=== PATIENT | male | born 1940 | race Caucasian/White ===

== ENCOUNTER 2021-03-09 00:29 | Emergency (ER) | payer MEDICARE, SELFPAY ==
[2021-03-09 00:30] VITALS: BP 200/104; PULSE 76; RESP 17; TEMP 36.4; O2SAT 97; BMI 26.6
--- NOTE | 2021-03-09 00:41 | ED_ITS ---
HPI - Fall General: Chief Complaint: Fall Stated Complaint: FALL Time Seen by Provider: 03/09/21 00:31 History of Present Illness: HPI Narrative: Patient is an 81-year-old male comes to the ED via EMS after having a fall. His main complaint is right knee pain. Patient says he was walking out of his camper and he was going down the steps. He missed the last step causing him to fall in his right knee folded up underneath him. Pain is located in the right knee and up into his thigh. His pain is minimal while at rest and with his leg straight. He says if he tries to move his leg at all the pain is severe. He denies hitting his knee on the ground, hitting head or having any loss of consciousness. he had a lot of pain in his right knee at the time and had to forcefully move his leg into the extended position using his other leg. Denies any other pain or injury to limbs. Patient is visiting this area and is at [employer]. He lives up in [place] and sees an administrative office specialist up there for his knees. He states that he gets injections in both right and left knees to help with his chronic knee pain. Associated symptoms-after fall: Denies abdominal pain, chest pain, headache(s), hematuria or neck pain Review of Systems Const: Denies: fever(s), chills or fatigue Eyes: Denies: change in vision or eye discomfort ENMT: Denies: throat pain, odynophagia, nasal discharge or nasal congestion Card: Denies: chest pain, palpitations, edema, swelling of feet/ankles, dyspnea on exertion or orthopnea Resp: Denies: dyspnea, productive cough or non-productive cough GI: Denies: abdominal pain, nausea, vomiting, diarrhea, constipation or hematochezia : Denies: flank pain, difficulty urinating, dysuria or hematuria Musc: Reports: joint pain (Right knee pain) and joint swelling (Right knee ); Denies: neck pain, back pain or extremity swelling Skin/Breast: Denies: rash or new lesions Neuro: Denies: headache(s), numbness in extremities or weakness in extremities Physical Exam Const: COMMON NORMALS: no acute distress, patient oriented x3, healthy appearing and alert GENERAL APPEARANCE: cooperative and comfortable HENMT: COMMON NORMALS: normocephalic HEAD & SCALP: normocephalic MOUTH: Normal oral and palatal mucosa present THROAT: posterior oropharynx normal and uvula midline Eye: COMMON NORMALS: Equal, round and reactive pupils present PUPIL: Yes Equal, round and reactive pupils present Neck/C-Spine: COMMON NORMALS: supple GENERAL: Yes normal visual inspection Resp: COMMON NORMALS: normal respiratory effort, No retractions, No use of accessory muscles and clear to auscultation bilaterally AUSCULTATION: clear to auscultation bilaterally Cardio: COMMON NORMALS: regular rate, regular rhythm, S1 normal heart sound present, S2 normal heart sound present, No gallops present (Cardio), No clicks present (Cardio), No murmurs present (Cardio) and Peripheral pulses 2+ throughout RATE: regular rate RHYTHM: regular rhythm HEART SOUNDS: S1 normal heart sound present and S2 normal heart sound present PERIPHERAL PULSES: Peripheral pulses 2+ throughout GI: COMMON NORMALS: Normal to inspection, nondistended, normoactive bowel sounds present, Soft to palpation, non-tender and no masses PALPATION: Yes Soft to palpation : COMMON NORMALS: Yes no CVA tenderness BLADDER/KIDNEY EXAM: Yes no CVA tenderness Back/Pelvis: COMMON NORMALS: no CVA tenderness Extremity: GENERAL: Yes normal exam except as noted RIGHT LOWER EXTREMITY: Yes knee joint Right knee: Yes inspection (No visible deformity noted. Swelling noted to knee.), Yes palpation (Tender over patellar and medial aspect of knee), Yes ROM (Limited due to pain-no pain at extension) and Yes neurovascular exam (Intact) Neuro: COMMON NORMALS: patient oriented x3 and moves all extremities SENSORIUM/ORIENTATION: Yes alert Skin: GENERAL SKIN EXAM: dry skin Course Vital Signs: Vital signs: Vital Signs Temperature 97.6 F 03/09/21 00:30 Pulse Rate 76 03/09/21 00:30 Respiratory Rate 17 03/09/21 00:30 Blood Pressure 171/91 03/09/21 00:44 Pulse Oximetry 97 03/09/21 00:30 MDM - Fall MDM Narrative: Medical decision making narrative: Patient is a 81-year-old male comes to the ED with right knee injury. Patient says he was stepping out of his camper any missed the last step and fell bending his right knee back underneath him. He states that bending his knee causes pain but when knee is extended out he has minimal to no pain. Upon exam patient has visible swelling to the knee with tenderness over the patella and the medial aspect of the knee. Pain with flexion of knee. Neurovascular intact. X-ray of right tib-fib, knee and femur showed no acute fractures or dislocations but did note some right knee effusion. Patient is visiting the [place] area and lives in [place]. He has an orthopedic doctor he sees there and I told him to contact that orthopedic doctor tomorrow to get set up with an appointment for his need to be evaluated by them within the next week. Patient was diagnosed with knee effusion and discharged home with some crutches and in a knee immobilizer. I also sent him home with a written prescription for hydrocodone 5/325 mg quantity 8 tablets for pain. Return to ED precautions given. Patient understood agree with plan. Imaging Data^: Xray Ortho: Attestation: I personally reviewed and interpreted this imaging study as follows: Radiologist's impression: [address] [place] [address] XRay Report Signed Patient: Javed Ferraro Unit #: [id number] : 1940 Age/Sex: 81 / M ADM Date: 03/09/21 Loc: ER Room/Bed: Attending Dr: Ordering Provider/Ordering MD: Kyle Goetz Date of Service: 03/09/21 Procedure(s): XR tibia fibula RT 2V 61771 Accession Number(s): [id number] Report Number: [id number] PROCEDURE INFORMATION: Exam: XR Right Tibia and Fibula Exam date and time: 03/09/2021 1:00 AM Age: 81 years old Clinical indication: Injury or trauma; Blunt trauma; Knee; Right; Patient HX: Fall. No visible trauma to leg. ; Additional info: Fall with knee pain TECHNIQUE: Imaging protocol: XR Right tibia and fibula. Views: 2 views. COMPARISON: No relevant prior studies available. FINDINGS: Bones/joints: No acute fracture, subluxation, periosteal reaction or osseous erosion. Soft tissues: Normal. XR/XR tibia fibula RT 2V 87915 IMPRESSION: No acute fracture, subluxation, periosteal reaction or osseous erosion. Dictated By: Jairo Moreno MD Signed By: Jairo Moreno MD Signed Date/Time: 03/09/21223 DD/ [address] [place] [id number] XRay Report Signed Patient: Javed Ferraro Unit #: [id number] : 1940 Age/Sex: 81 / M ADM Date: 03/09/21 Loc: ER Room/Bed: Attending Dr: Ordering Provider/Ordering MD: Kyle Goetz Date of Service: 03/09/21 Procedure(s): XR femur RT min 2V* 71533 Accession Number(s): [id number] Report Number: [id number] PROCEDURE INFORMATION: Exam: XR Right Femur Exam date and time: 03/09/2021 12:40 AM Age: 81 years old Clinical indication: Injury or trauma; Fall; Blunt trauma; Thigh or upper leg; Right; Additional info: Fall with pain in knee and in thigh TECHNIQUE: Imaging protocol: XR Right femur. Views: 2 views. COMPARISON: No relevant prior studies available. FINDINGS: Bones/joints: No acute fracture, subluxation, periosteal reaction or osseous erosion. Small knee joint effusion with possible loose bodies. Soft tissues: Normal. XR/XR femur RT min 2V* 23730 IMPRESSION: 1. No acute fracture, subluxation, periosteal reaction or osseous erosion. 2. Small knee joint effusion with possible loose bodies. Dictated By: Jairo Moreno MD Signed By: Jairo Moreno MD Signed Date/Time: 03/09/21222 DD/ [address] [place] [address] XRay Report Signed Patient: Javed Ferraro Unit #: [id number] : 1940 Age/Sex: 81 / M ADM Date: 03/09/21 Loc: ER Room/Bed: Attending Dr: Ordering Provider/Ordering MD: Kyle Goetz Date of Service: 03/09/21 Procedure(s): XR knee RT 3V* 61994 Accession Number(s): [id number] Report Number: [id number] PROCEDURE INFORMATION: Exam: XR Right Knee Exam date and time: 03/09/2021 12:40 AM Age: 81 years old Clinical indication: Injury or trauma; Fall; Blunt trauma; Knee; Right; Additional info: Fall with pain and swelling in knee TECHNIQUE: Imaging protocol: XR Right knee. Views: 3 views. COMPARISON: No relevant prior studies available. FINDINGS: Bones/joints: No acute fracture, subluxation, periosteal reaction or osseous erosion. Small joint effusion with possible loose bodies. Soft tissues: Normal. XR/XR knee RT 3V* [id number] IMPRESSION: 1. No acute fracture, subluxation, periosteal reaction or osseous erosion. 2. Small joint effusion with possible loose bodies. Dictated By: Jairo Moreno MD Signed By: Jairo Moreno MD Signed Date/Time: 03/09/21221 DD/ 9 Discharge Plan Discharge Patient Disposition: Home Clinical Impression: Effusion of knee joint right Condition: Stable Discharge Orders: Discharge ED (Routine); Ordered 03/09/21 Ordered By: Kyle Goetz Discharge Diet: Regular Discharge Activity: Limit activity as instructed and Use walker/crutches as instructed Patient Instructions: Knee Effusion (ED), Opioid Safety Activity Restrictions/Additional Instructions: Follow-up with medical provider as directed. Contact your orthopedic doctor in [place] tomorrow to set up an appointment with them to get seen here in the next week for further evaluation. Continue wearing knee immobilizer until you see orthopedic doctor and use crutches or walker to help with ambulation and limit weightbearing. Take medications as prescribed. You can also take [id number] ibuprofen per bottle instruction to help with pain as well. Ice and elevate right leg. Return to the ER or your medical provider if condition worsens. Please read and understand discharge instructions. Thank you for choosing [facility] for your healthcare needs today. Please realize this is an emergency room and that we are providing you with a medical screening exam and this may not be complete and all inclusive of all the testing and or work up that you may need to determine your ailment or severity of your illness. It is very important that you follow up as instructed or that you return to the Emergency Department should you have concerns or if your condition changes or worsens in any way. Coding Level of Care Code ED Insolvency Consultant for g Fwd Exam Comprehensive
[2021-03-09 00:44] VITALS: BP 171/91
--- NOTE | 2021-03-09 00:53 | PC.NURSE ---
patent reports fall 1 step, denoes head neck and back injury, no loc or thinners, patient reports right knee pain and that knee locked up, currently special needs caregiver pain but with movement pain is a 6/10, patient reports he is unable to bear wt on leg, cms wnl below injury, slight edema to right knee.
--- NOTE | 2021-03-09 01:00 | XRR_ITS ---
PROCEDURE INFORMATION: Exam: XR Right Tibia and Fibula Exam date and time: 03/09/2021 1:00 AM Age: 81 years old Clinical indication: Injury or trauma; Blunt trauma; Knee; Right; Patient HX: Fall. No visible trauma to leg. ; Additional info: Fall with knee pain TECHNIQUE: Imaging protocol: XR Right tibia and fibula. Views: 2 views. COMPARISON: No relevant prior studies available. FINDINGS: Bones/joints: No acute fracture, subluxation, periosteal reaction or osseous erosion. Soft tissues: Normal. XR/XR tibia fibula RT 2V 67615 IMPRESSION: No acute fracture, subluxation, periosteal reaction or osseous erosion.
--- NOTE | 2021-03-09 03:20 | PC.NURSE ---
knee immobilizer applied to right knee, cms wnl below splint. crutch teaching given,
== END 2021-03-09 03:27 | disposition home or self-care (01) ==
PROVIDERS: Emergency Provider Physician Assistant
DX: M25.461 Effusion, right knee (principal)
CPT/HCPCS: 29530; 73552; 73562; 73590; 99283; E0114

== ENCOUNTER 2022-12-20 16:03 | Emergency (ER) | payer MEDICARE, SELFPAY ==
[2022-12-20 16:40] VITALS: BP 122/70; PULSE 79; RESP 14; TEMP 36.6; O2SAT 98; BMI 22.8
--- NOTE | 2022-12-20 17:30 | USR_ITS ---
PROCEDURE INFORMATION: Exam: US Duplex Right Lower Extremity Veins, Limited Exam date and time: 12/20/2022 5:36 PM Age: 82 years old Clinical indication: Pain; Leg, lower; Right; Prior surgery; Surgery date: 6+ months; Surgery type: Knee SX; Additional info: Rle pain swelling, post surgery TECHNIQUE: Imaging protocol: Real-time duplex ultrasound of the right extremity with 2-D phillips scale, color Doppler flow and spectral waveform analysis including responses to compression and other maneuvers (when performed) with image documentation. Limited exam was focused on the right lower extremity veins. COMPARISON: CR (LOW EXM, ) 03/09/2021 12:59 AM FINDINGS: Right deep veins: Unremarkable. The common femoral, femoral, proximal profunda femoral, popliteal, posterior tibial and peroneal veins are patent without thrombus. Normal Doppler waveforms. Normal compressibility and/or augmentation response. Right superficial veins: Unremarkable. Saphenofemoral junction is patent without thrombus. Soft tissues: Unremarkable. US/[place] [address] IMPRESSION: No sonographic evidence of deep vein thrombosis.
--- NOTE | 2022-12-20 17:38 | ED_ITS ---
HPI - Extremity Problem General: Chief complaint: Extremity Problem,Nontraumatic Stated complaint: Right Leg Swelling and Hurting Time Seen by Provider: 12/20/22 17:32 History of Present Illness: Patient presents to the ER with complaints of right leg swelling and pain. Patient had a laminectomy in July of this year. He called the doctor the dentist and told him about the pain and swelling so he told him to come to the ER get ultrasound to rule out DVT. Patient has increased pain with movement. MD Complaint: extremity pain and extremity swelling Location: right and lower extremity Quality: aching Radiation: distal Relieving factors: nothing Exacerbating factors: range of motion and palpation Associated symptoms: Reports no associated symptoms Context: recent surgery/procedure Review of Systems General: Reports: 10 or more systems reviewed and unremarkable except in HPI and below Physical Exam Const: COMMON NORMALS: no acute distress, average body habitus, patient o riented x3, no limitations, healthy appearing, alert and well nourished HENMT: COMMON NORMALS: normocephalic, atraumatic, hearing grossly normal b ilaterally, external ears normal, Normal external nose present and moist oral mucous membranes HEAD & SCALP: normocephalic and atraumatic NOSE: Normal external nose present EXTERNAL EAR: Yes external ears normal Eye: COMMON NORMALS: Equal, round and reactive pupils present, EOMs intact bilaterally, conjunctivae normal and no scleral icterus CONJUNCTIVA: Yes conjunctivae normal PUPIL: Yes Equal, round and reactive pupils present Neck/C-Spine: COMMON NORMALS: full ROM, no lymphadenopathy, supple, no meningeal signs, no JVD and Thyroid normal THYROID: Thyroid normal Lymph: LYMPHATIC: no lymphadenopathy noted Chest: COMMONS NORMALS: normal inspection of the chest and normal palpation of entire chest wall Resp: COMMON NORMALS: normal respiratory effort, No retractions, No use of accessory muscles and clear to auscultation bilaterally AUSCULTATION: clear to auscultation bilaterally Cardio: COMMON NORMALS: no JVD, regular rate, regular rhythm, S1 normal heart sound present, S2 normal heart sound present, No gallops present (Cardio), No clicks present (Cardio), No murmurs present (Cardio) and No rub (Cardio) RATE: regular rate RHYTHM: regular rhythm HEART SOUNDS: S1 normal heart sound present and S2 normal heart sound present GI: COMMON NORMALS: Normal to inspection, nondistended, normoactive bowel sounds present, Soft to palpation, non-tender, No hepatosplenomegaly present, no masses and no bruits PALPATION: Yes Soft to palpation and Yes No hepatosplenomegaly present Extremity: NARRATIVE EXTREMITY EXAM: Patient has pain with palpation and compression of right lower extremity. Mild swelling noted no redness no erythema. Neuro: COMMON NORMALS: patient oriented x3 SENSORIUM/ORIENTATION: Yes alert MENINGEAL SIGNS: Yes no meningeal signs Course Vital Signs: Vital signs: Vital Signs Temperature 97.8 F 12/20/22 16:40 Pulse Rate 79 12/20/22 16:40 Respiratory Rate 18 12/20/22 18:04 Blood Pressure 122/70 12/20/22 16:40 Pulse Oximetry 97 12/20/22 18:04 Oxygen Delivery Me thod Room Air 12/20/22 18:04 MDM - Extremity (Nontraumatic) Medical Decision Making Patient presents to the ER with complaints of right lower extremity swelling and pain. Patient is worried about a blood clot. Patient had recent surgery on his back and he said his doctor told him to come to be checked out for DVT. Lab work was obtained which was essentially benign as well as a Doppler of his lower extremity was negative for DVT. Differential Diagnosis Unlikely herpes zoster, gout, cellulitis, superficial thrombophlebitis, deep venous thrombosis of upper extremity, lower extremity edema or deep vein thrombosis of lower extremity Medical Records I reviewed the patient's medical records. Lab Data I reviewed the patient's lab results. 12/20/22 19:15 12/20/22 19:15 Radiology Impressions Venous Duplex 12/20/22 17:30 IMPRESSION: No sonographic evidence of deep vein thrombosis. Laboratory Results WBC 9.1 10^3/uL (4.0-10.0) 12/20/22 19:15 RBC 4.39 10^6/uL (4.1-5.3) 12/20/22 19:15 Hgb 13.9 g/dL (11.7-16.6) 12/20/22 19:15 Hct 41.6 % (42.0-52.0) L 12/20/22 19:15 MCV 94.8 fl (80-94) H 12/20/22 19:15 MCH 31.7 pg (28.0-34.0) 12/20/22 19:15 MCHC 33.4 g/dL (30.0-36.0) 12/20/22 19:15 RDW 13.2 % (12.1-15.1) 12/20/22 19:15 Plt Count 174 10^3/cmm (130-400) 12/20/22 19:15 MPV 9.5 fL (7.4-10.4) 12/20/22 19:15 Neut % (Auto) 45.9 % 12/20/22 19:15 Lymph % (Auto) 45.3 % 12/20/22 19:15 [place] % (Auto) 7.3 % 12/20/22 19:15 Eos % (Auto) 1.0 % 12/20/22 19:15 Baso % (Auto) 0.4 % 12/20/22 19:15 Neut # (Auto) 4.16 10^3/uL (1.8-7.7) 12/20/22 19:15 Lymph # (Auto) 4.1 10^3/uL (0.8-4.8) 12/20/22 19:15 [place] # (Auto) 0.7 10^3/uL (0.2-0.9) 12/20/22 19:15 Eos # (Auto) 0.1 10^3/uL (0.0-0.8) 12/20/22 19:15 Baso # (Auto) 0.0 10^3/uL (0.0-0.1) 12/20/22 19:15 Nucleated RBC % (auto) 0 % 12/20/22 19:15 Nucleated RBCs # 0.0 /100WBC 12/20/22 19:15 Sodium 135 mmol/L (136-145) L 12/20/22 19:15 Potassium 4.3 mmol/L (3.5-5.1) 12/20/22 19:15 Chloride 99 mmol/L (98-107) 12/20/22 19:15 Carbon Dioxide 25 mmol/L (22-29) 12/20/22 19:15 Anion Gap 15.3 (5-19) 12/20/22 19:15 BUN 15 mg/dL (8-23) 12/20/22 19:15 Creatinine 1.3 mg/dL (0.7-1.2) H 12/20/22 19:15 GFR Calculation Not Reportable 12/20/22 19:15 Glucose 89 mg/dL (65-115) 12/20/22 19:15 Calculated Osmolality 280 mOsm/kg (285-295) L 12/20/22 19:15 Calcium 8.8 mg/dL (8.5-10.5) 12/20/22 19:15 Total Bilirubin 0.5 mg/dL (0.15-1.2) 12/20/22 19:15 AST 36 U/L (0-40) 12/20/22 19:15 ALT 22 U/L (0-41) 12/20/22 19:15 Alkaline Phosphatase 145 U/L (40-130) H 12/20/22 19:15 Total Protein 6.7 g/dL (6.6-8.7) 12/20/22 19:15 Albumin 4.2 g/dL (3.5-5.2) 12/20/22 19:15 Globulin 2.5 g/dL (1.3-4.6) 12/20/22 19:15 Discharge Plan Discharge Patient Disposition: Home Clinical Impression: Lower extremity edema Condition: Stable Discharge Orders: Discharge ED (Routine); Ordered 12/20/22 Ordered By: Jose Pink Discharge Diet: Usual diet Discharge Activity: Increase activity as tolerated Patient Instructions: Leg Edema (ED) Activity Restrictions/Additional Instructions: Thank you for visiting the emergency department. You are seen and evaluated for leg swelling. The exact cause of your symptoms is unclear. No evidence of blood clot was seen on ultrasound and I do not see evidence of infection on exam or laboratory studies. Please follow-up with your primary care provider. Return to the emergency department for anything that you are concerned about and feel needs emergency room evaluation. Coding Level of Care Code ED Home Security Professional for Misty Barker
[2022-12-20 17:47] VITALS: RESP 17
[2022-12-20 18:04] VITALS: RESP 18; O2SAT 97
[2022-12-20 19:53] LABS: Basophils % 0.4 %; Eosinophils # 0.1 10^3/uL (0.0-0.8); Hematocrit 41.6 % (42.0-52.0); Hemoglobin 13.9 g/dL (11.7-16.6); Lymphocytes # 4.1 10^3/uL (0.8-4.8); Lymphocytes % 45.3 %; Mean Corpuscular HGB Conc 33.4 g/dL (30.0-36.0); Mean Corpuscular Hemoglobin 31.7 pg (28.0-34.0); Mean Corpuscular Volume 94.8 fl (80-94); Mean Platelet Volume 9.5 fL (7.4-10.4); Monocytes # 0.7 10^3/uL (0.2-0.9); Monocytes % 7.3 %; Neutrophils # 4.16 10^3/uL (1.8-7.7); Neutrophils % 45.9 %; Nucleated Red Blood Cells % 0 %; Platelet Count 174 10^3/cmm (130-400); Red Blood Count 4.39 10^6/uL (4.1-5.3); Red Cell Distribution Width 13.2 % (12.1-15.1); White Blood Count 9.1 10^3/uL (4.0-10.0)
[2022-12-20 20:15] LABS: Albumin Level 4.2 g/dL (3.5-5.2); Alkaline Phosphatase 145 U/L (40-130); Anion Gap 15.3 (5-19); Aspartate Amino Transferase 36 U/L (0-40); Blood Urea Nitrogen 15 mg/dL (8-23); Calcium 8.8 mg/dL (8.5-10.5); Carbon Dioxide 25 mmol/L (22-29); Chloride 99 mmol/L (98-107); Globulin 2.5 g/dL (1.3-4.6); Glucose 89 mg/dL (65-115); Osmolality Calculated 280 mOsm/kg (285-295); Potassium 4.3 mmol/L (3.5-5.1); Sodium 135 mmol/L (136-145); Total Bilirubin 0.5 mg/dL (0.15-1.2); Total Protein 6.7 g/dL (6.6-8.7)
[2022-12-20 20:27] LABS: Alanine Aminotransferase 22 U/L (0-41)
--- NOTE | 2022-12-26 14:52 | DCPLANNER ---
automotive general manager called patient due to no primary care physician - no answer at this time.
== END 2022-12-20 20:47 | disposition home or self-care (01) ==
PROVIDERS: Emergency Provider Emergency Medicine
DX: R60.0 Localized edema (principal); M79.604 Pain in right leg
CPT/HCPCS: 36415; 80053; 85025; 93971; 99284